=== PATIENT | female | born 2000 | race Caucasian/White ===

== ENCOUNTER 2020-01-11 18:29 | Outpatient (CLI) | payer BC, SELFPAY ==
[2020-01-11 18:54] LABS: Hemoglobin A1C 5.1 % (<5.7)
== END 2020-01-11 18:30 | disposition home or self-care (01) ==
PROVIDERS: PCP Internal Medicine; Visit Provider Obstetrics & Gynecology
DX: B37.3 Candidiasis of vulva and vagina (principal)
CPT/HCPCS: 36415; 83036

== ENCOUNTER 2020-02-14 11:23 | Outpatient (CLI) | payer BC, SELFPAY ==
[2020-02-15 19:47] LABS: SARS-CoV-2 RNA PCR Negative
== END 2020-02-14 11:24 | disposition home or self-care (01) ==
LOC: CHSLAB 11:25
PROVIDERS: PCP Internal Medicine; Visit Provider Internal Medicine
DX: Z20.828 Contact with and (suspected) exposure to other viral communicable diseases (principal)
CPT/HCPCS: 87635; C9803; U0003

== ENCOUNTER 2020-07-18 11:12 | Outpatient (CLI) | payer BC, SELFPAY ==
[2020-07-18 12:27] LABS: SARS-CoV-2 RNA PCR Negative (Negative)
== END 2020-07-18 11:13 | disposition home or self-care (01) ==
LOC: CHSLAB 11:20
PROVIDERS: PCP Internal Medicine; Visit Provider Internal Medicine
DX: J02.9 Acute pharyngitis, unspecified (principal); R05 Cough; R50.9 Fever, unspecified; Z20.822 Contact with and (suspected) exposure to COVID-19
CPT/HCPCS: C9803; U0003; U0005

== ENCOUNTER 2021-08-01 13:26 | Outpatient (CLI) | payer BC, SELFPAY ==
[2021-08-01 14:33] LABS: Influenza A QL RT-PCR Negative (Negative); Influenza B QL RT-PCR Negative (Negative); SARS-CoV-2 RNA PCR Negative (Negative)
== END 2021-08-01 13:27 | disposition home or self-care (01) ==
LOC: CHSLAB 13:31
PROVIDERS: PCP Internal Medicine; Visit Provider Internal Medicine
DX: J06.9 Acute upper respiratory infection, unspecified (principal); Z20.822 Contact with and (suspected) exposure to COVID-19
CPT/HCPCS: 87081; 87502; 87880; C9803; U0003; U0005

== ENCOUNTER 2021-10-04 08:54 | Emergency (ER) | payer BC, SELFPAY ==
--- NOTE | ~2021-10-04 | CT_ITS ---
EXAMINATION: CT abdomen pelvis w con INDICATION: Abdominal pain TECHNIQUE: Computed tomographic images of the abdomen and pelvis were obtained after the administrati on of 100 cc of Omnipaque 350 intravenous contrast. The dose-length product (DLP) was 1141.55 mGy-cm. Automated exposure control and iterative reconstruction technique were employed. COMPARISON: None available FINDINGS: The lung bases are clear. The heart size is normal. The liver, spleen, pancreas, and adrena l glands are normal. There is a polyp or stone of the gallbladder fundus. The kidneys are unremarkabl e. There is mild right inguinal lymphadenopathy. There are prominent, but not pathologically enlarged , retroperitoneal and left obturator lymph nodes. There is no free intraperitoneal gas or evidence of bowel obstruction. An IUD is noted. IMPRESSION: 1. No CT correlate for the patient's symptoms. 2. Mild right inguinal lymphadenopathy and prominent retroperitoneal and left obturator lymph nodes. Findings could be reactive however clinical follow-up is recommended. Reviewed, dictated and finalized at location B. IMPRESSION: 1. No CT correlate for the patient's symptoms. 2. Mild right inguinal lymphadenopathy and prominent retroperitoneal and left o bturator lymph nodes. Findings could be reactive however clinical follow-up is recommended.
[2021-10-04 09:04] VITALS: BP 118/79; PULSE 84; RESP 18; TEMP 36.6; O2SAT 98
[2021-10-04 09:47] LABS: Basophils Absolute Auto 0.08 K/mm3 (0.00-0.10); Basophils Percent Auto 0.8 % (0.0-1.0); Eosinophils Absolute Auto 0.25 K/mm3 (0.02-0.50); Eosinophils Percent Auto 2.5 % (1.0-6.0); Hematocrit 43.2 % (35.0-49.0); Hemoglobin 14.3 g/dL (12.0-15.0); Immature Granulocyte Absolute 0.03 K/mm3 (0.00-0.00); Immature Granulocyte Percent A 0.3 % (0.0-0.0); Lymphocytes Absolute Auto 2.32 K/mm3 (1.10-4.50); Lymphocytes Percent Auto 23.6 % (18.0-42.0); Mean Corpuscular HGB Conc 33.1 g/dL (32.0-36.0); Mean Corpuscular Hemoglobin 29.9 pg (27.0-31.0); Mean Corpuscular Volume 90.4 fL (78.0-102.0); Mean Platelet Volume 11.1 fl (9.2-11.8); Monocytes Absolute Auto 0.53 K/mm3 (0.10-0.90); Monocytes Percent Auto 5.4 % (2.0-11.0); Neutrophils Absolute Auto 6.6 K/mm3 (1.7-7.2); Neutrophils Percent Auto 67.4 % (50.0-70.0); Platelet Count Result 252 K/mm3 (150-420); Red Blood Count 4.78 M/mm3 (4.20-5.40); Red Cell Distribution Width 13.5 % (11.6-14.4); White Blood Count 9.8 K/mm3 (4.8-10.8)
[2021-10-04] MEDS: SODIUM CHLORIDE 0.9% IV 1,000 ML 999 ML IV CONT (09:52)
[2021-10-04 09:56] LABS: Add Urine Microscopic? YES; Appearance Urine Clear (Clear); Bilirubin Urine Negative (Negative); Blood Urine Negative (Negative); Color Urine Light Yellow (Yellow); Glucose Urine UA Negative (Negative); Ketones Urine Negative (Negative); Leukocyte Esterase Ur 1+ (Negative); Nitrate Urine Negative (Negative); Protein Urine Negative (Negative); Urobilinogen Urine 0.2 mg/dL (0.2-1.0)
[2021-10-04 09:58] LABS: Pregnancy On Board Control Positive; Urine Pregnancy Test Negative
[2021-10-04 10:02] LABS: Bacteria Urine 2+ /hpf; RBC Urine None seen /hpf (0-2); Squamous Epithelial Cell Urine Few /hpf (Few)
[2021-10-04 10:02] LABS: Alanine Aminotransferase 17 U/L (14-59); Albumin Level 3.5 g/dL (3.4-5.0); Alkaline Phosphatase 86 U/L (46-116); Anion Gap 6 mmol/L (8-16); Aspartate Amino Transferase 12 U/L (15-37); Bilirubin,Total 0.5 mg/dL (0.00-1.00); Blood Urea Nitrogen 12 mg/dL (7-18); Calcium 8.7 mg/dL (8.5-10.1); Carbon Dioxide 27 mmol/L (21-32); Chloride 106 mmol/L (98-108); Creatine Kinase 85 U/L (26-192); Estimated CRCL calculation 92 ml/min; Estimated Glomerular Filt Rate > 60; Glucose 90 mg/dL (70-99); Osmolality Calculated 287 mOsm/kg (285-295); Potassium 4.1 mmol/L (3.5-5.1); Sodium 139 mmol/L (136-145); Total Protein 6.9 g/dL (6.4-8.2)
--- NOTE | 2021-10-04 10:13 | PC.NURSE ---
Pt off floor to CT scan
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
[2021-10-04 11:06] VITALS: BP 108/63; PULSE 65; RESP 18; TEMP 36.2; O2SAT 98
== END 2021-10-04 11:06 | disposition home or self-care (01) ==
PROVIDERS: Emergency Provider Emergency Medicine; PCP Internal Medicine
DX: R10.9 Unspecified abdominal pain (principal); V89.2XXA Person injured in unspecified motor-vehicle accident, traffic, initial encounter
CPT/HCPCS: 36415; 74177; 80053; 81001; 81025; 82550; 85025; 96360; 99284; J7030; Q9967

== ENCOUNTER 2022-02-15 07:19 | Outpatient (CLI) | payer BC, SELFPAY ==
--- NOTE | ~2022-02-15 | CT_ITS ---
EXAMINATION: CT chest abdomen pelvis w con DATE: 02/15/2022 07:53 INDICATION: Lymphadenopathy TECHNIQUE: Transaxial computed tomographic images of the chest, abdomen, and pelvis were obtained aft er the administration of 100 cc of Omnipaque 350 intravenous contrast. The dose-length product (DLP) was 1307.02 mGy-cm. Automated exposure control and iterative reconstruction technique were employed. COMPARISON: 10/04/2021 FINDINGS: CHEST CT: The lungs are free of acute opacities. No pleural effusion or pneumothorax. No pathologically enlarge d thoracic lymph nodes are identified. The heart size is normal. The visualized osseous structures ar e unremarkable. Triangular soft tissue density in the anterior mediastinum is consistent with residua l thymus. ABDOMEN/PELVIS CT: The liver, spleen, pancreas, gallbladder, and adrenal glands are normal. The kidneys are unremarkable . No pathologically enlarged abdominal or pelvic lymph nodes are identified. No persistent lymphadeno chelsie is identified. There is no free intraperitoneal gas or evidence of bowel obstruction. The appen crystal is normal. An IUD is noted in expected position. There is an enhancing corpus luteum of the right ovary. IMPRESSION: 1. Resolved lymphadenopathy, likely reactive. Reviewed, dictated and finalized at location F. ER
== END 2022-02-15 07:20 | disposition home or self-care (01) ==
LOC: CHSIMG 07:20
PROVIDERS: PCP Internal Medicine; Visit Provider Internal Medicine
DX: R59.1 Generalized enlarged lymph nodes (principal)
CPT/HCPCS: 71260; 74177; Q9967

== ENCOUNTER 2023-01-01 15:00 | Outpatient (RCR) | payer BC, SELFPAY ==
--- NOTE | 2022-12-12 15:24 | OPREHPOC ---
Outpatient Therapy Plan of Care This is a Multidisciplinary Plan of Care that may contain components documented by all disciplines (PT, OT, and ST.) PT Problem 1 PT Problem #1 Knowledge Deficit PT Goal 1 Goal 1. Patient will perform independent HEP Target Visit 5 PT Problem 2 PT Problem #2 Impaired Strength PT Goal 1 Goal 1. Improve pelvic floor strength to 5/5 to decrease incontinence Target Visit 5 PT Problem 3 PT Problem #3 Impaired Functional ADLs PT Goal 1 Goal 1. Patient will report no more than 3 instances of incontinence per week 2. Patient will be able to work a full week without needing to change clothes due to incontinence Target Visit 5
--- NOTE | 2022-12-12 15:25 | PTOPEVAL1 ---
Assessment and note entered by Marva Carrington DPDeysi Evaluation Information Assessment Status Evaluation Subjective Information Pt reports urinary incontinence, had it from a young age with movement but now has worsened and seems to be all day long. Unable to give a number of times per day, just small amounts very often. Voids 4 times a day and usually none at night. Denies pain with urination. Can hold urge to void up to 15 minutes. BM usually 1 time a day, without pain. Denies history of pelvic pain. Pt has never been . Has been diagnosed with PCOS and takes metformin. No b/b issues. Pt reports embarrassment and anxiety due to incontinence and makes time to go home after work to change clothes before going anywhere else. Tries to avoid wearing pads due to frequent yeast infections. Patient goal: not have to be worried about smelling like urine, not have to change clothes Reported Pain Level Pain Score 0: Self Report Assessment PT Clinical Summary The patient is presenting to skilled therapy with a progressing history of urinary incontinence and reports a frequency of multiple times a day. She presents with decreased core and pelvic floor strength which are contributing to her incontinence. She will highly benefit from therapy to address these impairments in order to safely reduce incontinence and improve function . Plan of Care Interventions Manual Therapy,Neuro Re-education,Patient/ Caregiver Education,Therapeutic Activities, Therapeutic Exercise PT Services Indicated Yes Treatment Frequency and 1 time a week for 4 visits Duration These treatments will address the objective and functional deficits as defined above. The patient will be advanced safely and appropriately in order for the patient to progress towards his/her prior level of function. Additional exercises will be introduced and as well as a comprehensive home exercise program upon discharge, if needed, ?to ensure carryover of functional gains achieved in the clinic. This treatment plan has been reviewed and agreement upon by the patient.
--- NOTE | 2022-12-25 12:31 | PCPTNOTE ---
Patient called to cancel appointment for 12/25/22.
--- NOTE | 2023-01-09 10:54 | PCPTNOTE ---
Patient called to reschedule appointment to next week due to shingles.
--- NOTE | 2023-01-15 15:49 | PCPTNOTE ---
Patient did not show up for appointment on 01/15/23. Left voicemail for patient to call back and reschedule.
--- NOTE | 2023-02-25 08:55 | PTOPDC ---
Assessment and note entered by Marva Carrington DPT Evaluation Information Assessment Status Discharge - Pt Not Present Subjective Information - Assessment PT Clinical Summary Pt has not attended therapy since 01/01/23. She will be discharged this date. Plan of Care PT Services Indicated No
== END 2023-02-25 09:02 | disposition home or self-care (01) ==
LOC: ANHPT 15:00
PROVIDERS: PCP Internal Medicine; Visit Provider Nurse Practitioner Obstetrics & Gynecology
DX: N39.3 Stress incontinence (female) (male) (principal)
CPT/HCPCS: 97112; 97161; 97530; 99199

== ENCOUNTER 2024-12-22 14:33 | Outpatient (CLI) | payer BC, SELFPAY ==
--- NOTE | ~2024-12-22 | US_ITS ---
EXAMINATION: US OB <= 14 weeks fetus DATE: 12/22/2024 15:52 INDICATION: Threatened TECHNIQUE: Real-time transabdominal and transvaginal obstetric ultrasound. FINDINGS: No prior studies for comparison. The uterus measures 7.3 x 3.1 x 4.3 cm. There is an intrauterine gestational sac, with pole identified. Small subchorionic hemorrhage. The crown rump length measures 0.73 cm, which correlates with a estimated gestational age of 6 weeks 4 days. heart tones are identified measuring 112 BPM. The ovaries within normal limits without significant solid or cystic mass. IMPRESSION: 1. SL IUP with an EGA of 6 weeks 4 days. 2: Small subchorionic hemorrhage. Reviewed, dictated and finalized at location O.
--- OUTSIDE RECORDS SUMMARY | 2024-12-22 14:57 | XMS_ITS | Patient Health Record ---
Author Organization [facility] Address [address] [place] [address] Care Team Providers Care Investigations Manager Name Role Phone Arcelia Tyler Primary Care Provider [phone] Allergies Allergen (clinical drug ingredient) Drug/Non Drug Allergy documented on EMR Reaction Allergy Type Onset Date Status amoxicillin Amoxicillin Unknown Drug Allergy Act netta Reason For Referral No Information Medications Medication SIG (Take, Route, Frequency, Duration) Notes Start Date End Date Status Zoloft 100 MG two tablets Orally T amparo once a day at bedtime; Duration: 30 days Active traZODone HCl 100 MG 1 tablet at bedtime Orally Once a day Active LaMICtal 100 MG 1 tablet Orally once daily; Duration: 30 days Active Ativan 0.5 MG 1 tablet as needed O rally Once a day as needed for anxiety; Duration: 30 days Activ e CECY 3-0.02 MG 1 tablet Orally Once a day Active Wellbutrin XL 150 MG 1 tablet in the mor melissa Orally Once a day; Duration: 30 day(s) 05/30/2016 Not-Taking Vistaril 25 MG 1 capsule as needed Orally twice a day Not-Taking Zoloft 50 MG 1 tablet Orally Once a day; Duration: 30 day(s) 10/18/2015 Not-Taking Problems Problem Type SNOMED Code ICD Code Onset Dates Problem Status W/U Status Risk Notes Problem Generalized anxiety disorder (04218185) GOMEZ (generalized anxiety disorder) (F41.1) Active confirmed Problem Major depressive disorder (732732193) MDD (major depressive disorder) (F32.9) Active confirmed Plan Of Treatment No Information Insurance Providers Payer Name Payer Address Payer Phone Subscriber Number Group Number Insured Name Patient Relationship to Insured Coverage Start Date Coverage End Date MEDICAID [address] [place] [phone] [id number] Trina Buenrostro Self - patient is the insured 5
--- OUTSIDE RECORDS SUMMARY | 2024-12-22 14:57 | XMS_ITS | Clinical Summary ---
Author Organization [facility] Address [address] [place] [address] Care Team Providers Care Security Representative Name Role Phone Tiffanie Fontaine MD Primary Care Provider Unavailab le Source Comments [facility],non-owned Affiliates and Associated Physician Practices is amultiple site organization consisting of ambulatory clinics and hospital sitesin [place], [place], [place] and [place]. This disclosure is being madepursuant to the Care Everywhere program and may not contain all information available regarding this patient. Last updated 17.[facility] Allergies Active Allergy Reactions Criticality Noted Date Comments Amoxicillin 12/05/2011 Medications * Be aware that medications may not be up to date on this document. Alwaysverify current medications with the patient. lumateperone (Caplyta) 42 MG capsule Take 1 (one) capsule by mouth daily with food Active divalproex ER 24hr (Depakote ER) 500 MG tablet Take 1 (one) tablet by mouth once daily Active lurasidone (Latuda) 80 MG tablet Take 1 (one) tablet by mouth daily with food Active hydrOXYzine HCl (Atarax) 25 MG tablet Take 1 (one) tablet by mouth 4 times daily as needed for Itching Active LORazepam (Ativan) 0.5 MG tablet Take 1 (one) tablet by mouth every 8 hours as needed for Anxiety Active traZODone (Desyrel) 50 MG tablet Take 1 (one) tablet by mouth at bedtime Active valACYclovir (Valtrex) 500 MG tablet Take 1 (one) tablet by mouth 2 times daily Active Social History Tobacco Use Types Packs/Day Years Used Date Smoking Tobacco: Never Assessed Comments Unknown Sex and Gender Information Value Date Recorded Sex Assigned at Not on file Legal Sex Female 5:32 AM FIRST SAMPLER Gender Identity Not on file Sexual Orientation Not on file Plan of Treatment Health Maintenance Due Date Last Done Comments HIV SCREENING 2013 HPV VACCINE (1 - 3-dose series) 2013 CHLAMYDIA/GONORRHEA SCREENING 2014 HEPATITIS C SCREENING 12/12/2016 DTAP/TDAP/TD VACCINES (1 - Tdap) 2017 HEPATITIS B VACCINE (1 of 3 - 19+ 3-dose series) 2017 PAP SMEAR 12/18/2019 DEPRESSION SCREENING 03/31/2024 COVID-19 VACCINE (1 - 2023-2 5 season) 2024 INFLUENZA VACCINE (#1) 2024 ZOSTER VACCINE (1 of 2) 2048 HIB VACCINE Aged Out No longer eligi ble based on patient's age to complete this topic MENINGOCOCCAL (Group B) VACC INE SHARED DECISION-MAKING Aged Out No longer eligibl e based on patient's age to complete this topic MENINGOCOCCAL GROUPS A/C/Y/W VACCINE Aged Out No longer eligible b ased on patient's age to complete this topic PNEUMOCOCCAL VACCINE Aged Out No long er eligible based on patient's age to complete this topic Insurance ANTHEM ANTHEM Care Teams Security Representative Relationship Specialty Start Date End Date Tiffanie Fontaine MD PCP - General Pediatrics 11/29/11
--- OUTSIDE RECORDS SUMMARY | 2024-12-22 14:57 | XMS_ITS | Clinical Summary ---
Author Organization [facility] Address [address] [place] [address] Care Team Providers Care Supervisor Inspecting Name Role Phone Jorje Purdy MD Primary Care Provider + Allergies Active Allergy Reactions Criticality Noted Date Comments Amoxicillin Rash Medium 01/14/2018 Hot flashes Bupropion Hcl Rash Medium 01/14/2018 Medications levonorgestrel (MIRENA) 20 mcg/24 hr (5 years) IUD 1 Device by Intrauterine route one time only. Active melatonin 5 mg Tablet Take 5 mg by mouth daily at bedtime. Active metFORMIN (GLUCOPHAGE) 1,000 mg tablet Take 1,000 mg by mouth daily with breakfast. Active traZODone (DESYREL) 50 mg tablet Take 1 Tablet (50 mg) by mouth daily at bedtime. 90 Tablet 1 9 Active lamoTRIgine (LaMICtal) 100 mg tablet Take 2 Tablets (200 mg) by mouth daily. 180 Tablet 1 9 Active Active Problems Problem Noted Date Diagnosed Date Moderate episode of recurrent major depressive d isorder Family History Medical History Relation Name Comments Anxiety Father Depression Father Anxiety Maternal Grandfather Anxiety Mother Depression Paternal Grandfather Diabetes Paternal Grandfather Anxiety Paternal Grandmother Anxiety Sister 1 Healthy Sister 1 Other Sister 1 Hoshimoto's Thyroid Disease Sister 1 Anxiety Sister 2 Healthy Sister 2 Relation Name Status Comments Father Alive Maternal Grandfather Alive Maternal Grandmother Alive Mother Alive Paternal Grandfather Alive Paternal Grandmother Alive Sister 1 Alive Sister 2 Alive Social History Tobacco Use Types Packs/Day Years Used Date Smoking Tobacco: Never Smokeless Tobacco: Never Tobacco Cessation:Counseling Given: No Alcohol Use Standard Drinks/Week Comments No 0 (1 standard drink = 0.6 oz pur e alcohol) Comments No Sex and Gender Information Value Date Recorded Sex Assigned at Not on file Legal Sex Female 10:20 PM CDT Gender Identity Not on file Sexual Orientation Not on file Last Filed Vital Signs Vital Sign Reading Time Taken Comments Blood Pressure 120/78 11/10/2018 11:22 AM CDT Pulse 98 11/10/2018 11:22 AM CDT Temperature 36.8 C (98.2 F) 01/27/2018 10:32 AM CDT Respiratory Rate 16 01/27/2018 10:32 AM CDT Oxygen Saturation - - Inhaled Oxygen Concentration - - Weight 98.2 kg (216 lb 6.4 oz) 11/10/2018 11:22 AM CDT Height 160 cm (5' 3) 11/10/2018 11:22 AM CDT Body Mass Index 38.33 11/10/2018 11:22 AM CDT Plan of Treatment Health Maintenance Due Date Last Done Comments HPV VACCINES (1 - 3-dose series) 2013 DTAP/TDAP/TD VACCINES (1 - Tdap) 2017 HEPATITIS B VACCINES (1 of 3 - 19+ 3-dose series) 11/29 CERVICAL CANCER SCREENING 12/18/2019 HPV/Cotest (21-29) 12/18/2019 PAP SMEAR 12/18/2019 INFLUENZA VACCINE (#1) 2024 Insurance [facility] [employer] Care Teams Supervisor Inspecting Relationship Specialty Start Date End Date Jorje Purdy MD [address] [place] [id number] PCP - General Internal Medicine 01/14/18
--- OUTSIDE RECORDS SUMMARY | 2024-12-22 14:57 | XMS_ITS | Patient Health Record ---
Author Organization [facility] [employer] Address [address] [facility] [address] [place] [address] Care Team Providers Care Virginia Line Attendant Name Role Phone Bree Munson Unavailable [phone] Allergies Allergen (clinical drug ingredient) Drug/Non Drug Allergy documented on EMR Reaction Allergy Type Onset Date Status amoxicillin Amoxicillin Unknown Drug Allergy 08/12/2023 Ac tive bupropion Bupropion Unknown Drug Allergy 08/12/2023 Active Reason For Referral No Information Medications Medication SIG (Take, Route, Frequency, Duration) Notes Start Date End Date Status Lurasidone HCl 40 MG Tablet 1 tablet in the evening with food Orally Once a day; Duration: 30 days Active Caplyta 42 MG Capsule 1 capsule Oral Once a day; Duration: 30 days *Reorder from [employer]olo[employer] Properties for eRx and Interaction Alerts* Active Depakote ER 500 MG Tablet Extended Release 24 Hour 1 tablet Orally three times a day; Duration: 90 days Active LORazepam 0.5 MG Tablet 1 tablet Oral three times a day; Duration: 10 days As needed d/c bid dose Active Divalproex Sodium 500 MG Tablet Delayed Release 1 tablet Oral three times a day; Duration: 90 days d/c ER script Active MIRENA 21 MCG/24 HR (UP TO 8 YEARS) 52 MG INTRAUTERINE DEVICE *Reorder from IntoloopMCTX Properties for eRx and Interaction Alerts* 08/12/2023 Active ProAir HFA 108 (90 Base) MCG/ACT Aerosol Solution Inhalation 08/12/2023 Active ZyrTEC Allergy 10 MG Capsule Oral 08/12/2023 Active traZODone HCl 50 MG Tablet TAKE 1 TABLET BY MOUTH EVERYDAY AT BEDTIME; Duration: 90 Active hydrOXYzine HCl 25 MG Tablet 1 tablet Oral Once a day; Duration: 30 days As needed Active Immunizations Vaccine Route Administration Date Status Comme nts DTaP Unknown 02/16/1999 Administered DTaP Unknown 04/19/1999 Administered DTaP Unknown 06/18/1999 Administered DTaP Unknown 03/19/2000 Administered DTaP Unknown 12/20/2003 Administered Hep A, ped/adol, 2 dose Unknown 12/23/2007 Administered Hep A, ped/adol, 2 dose Unknown 05/22/2009 Administered Hep B, adolescent or pediatr ic (11-19), 3 dose schedule Unknown 02/16/1999 Administered Hep B, adolescent or pediatr ic (11-19), 3 dose schedule Unknown 06/18/1999 Administered Hep B, adolescent or pediatr ic (11-19), 3 dose schedule Unknown 09/19/1999 Administered Hib, unspecified formulation Unknown 02/16/1999 Adminis tered Hib, unspecified formulation Unknown 04/19/1999 Adminis tered Hib, unspecified formulation Unknown 06/18/1999 Adminis tered Hib, unspecified formulation Unknown 03/19/2000 Adminis tered HPV (human papillomavirus), bivalent, 3 dose schedule Unknown 02/05/2013 Administered HPV (human papillomavirus), bivalent, 3 dose schedule Unknown 04/08/2013 Administered HPV (human papillomavirus), bivalent, 3 dose schedule Unknown 09/23/2013 Administered Influenza virus vaccine, quadrivalent (IIV4), split virus, 0.25 mL dosage Unknown 01/11/2015 Administered Influenza, unspecified formulation Unknown 12/23/2007 A dministered Influenza, unspecified formulation Unknown 01/25/2009 A dministered Influenza, unspecified formulation Unknown 01/16/2011 A dministered Influenza, unspecified formulation Unknown 01/16/2012 A dministered Influenza, unspecified formulation Unknown 02/05/2013 A dministered IPV Unknown 02/16/1999 Administered IPV Unknown 04/19/1999 Administered IPV Unknown 06/18/1999 Administered IPV Unknown 03/19/2000 Administered Meningococcal MCV4P Unknown 10/08/2010 Administered Meningococcal MCV4P Unknown 11/05/2016 Administered Meningococcal Quadrivalent Unknown 10/18/2010 Administe red MMR Unknown 12/19/1999 Administered MMR Unknown 12/20/2003 Administered Pneumococcal conjugate PCV 7 Unknown 12/19/1999 Adminis tered Pneumococcal conjugate PCV 7 Unknown 02/17/2000 Adminis tered Td (adult), adsorbed Unknown 10/18/2010 Administered Tdap Unknown 10/18/2010 Administered Varicella Unknown 12/19/1999 Administered Varicella Unknown 12/23/2007 Administered Social History Tobacco Use: Social History Observation Description Date Details (start date - stop date) Never Smoker NA - NA Sex Assigned At : Social History Observation Description Sex Assigned At Female Social History Tobacco Use: Social Info Question Answer Notes Tobacco Control (Standard) Tobacco use: Nonsmoker Additional Details Category Social Info Options Details Migrated Social History Migrated Social History Alcohol Intake: Occasional 06/10/2020,Tobacco Years: Never smoker 02/01/2020 Problems Problem Type SNOMED Code ICD Code Onset Dates Problem Status W/U Status Risk Notes Problem Bipolar affective disorder, currently depressed, mild (808661921) Bipolar disorder, current episode depressed, mild (F31.31) 08/12/19 Active confirmed Problem Generalized anxiety disorder (99795176) Generalized anxiety disorder (F41.1) 08/12/19 Active confirmed Problem Primary insomnia (6562912) Primary insomnia (F51.01) 08/12/19 Active confirmed Problem Bipolar 1 disorder (245550571) Bipolar 1 disorder (F31.9) Active confirmed Problem Long-term current use of drug therapy (107165196) On intermediate drug therapy (Z79.899) Active confirmed Problem Bipolar affective disorder, currently manic, moderate (075385390) Bipolar disorder, manic, moderate (F31.12) Active confirmed Problem Hypnagogic hallucinations (98832914) Hypnagogic hallucinations (R44.2) Active confirmed Vital Signs Heart Rate 52 /min 12/26/2023 Height-cm 160.02 cm 12/26/2023 Blood pressure diastolic 69 mm Hg 12/26/2023 Weight-kg 111.86 kg 12/26/2023 Height 63.00 in 12/26/2023 Blood pressure systolic 103 mm Hg 12/26/2023 Weight 246.6 lbs 12/26/2023 BMI 43.68 kg/m2 12/26/2023 Encounters Encounter Location Date Provider Diagnosis [facility] [employer] [facility] [address] [address] 12/26/2023 Bree Munson Bipolar 1 disorder F31.9 ; Generalized anxiety disorder F41.1 ; Hypnagogic hallucinations R44.2 and Primary insomnia F51.01 [employer] [address] [facility] [address] [place] [address] 04/08/2024 Bree Munson Bipolar 1 disorder F31.9 Assessments Encounter Date Diagnosis (ICD Code) Assessment Notes Treatment Notes Treatment Clinical Notes Section Notes 04/08/2024 Bipolar 1 disorder (ICD-10 - F31.9) 12/26/2023 Bipolar 1 disorder (ICD-10 - F31.9) NO REFILLS NEEDED TODAY 12/03/23 increase -Depakote 500 mg to Three times a day- no refill needed 12/03/23 increase - Lorazepam 0.5 mg three times a day- no reill needed go to ER if needed. 1. Bipolar I Disorder - She reports last 6 weeks had manic/mix episodes and a swing into depression over last few weeks and currently in depression state- improving with Latuda last 3 weeks- will monitor discuss and educated on Latuda 40 mg with evening meal and eat 350 calories with rx - Continue current medications: Caplyta 42 mg daily and Depakote 500 mg three times a day. - Monitor mood and symptoms closely. Continue therapy seen 2x week and work on coping skills and stress, working 2 jobs, school and schedule therapy more often need 2 anti-psychotics at this time for symptom control dameon/mix/depres liban 2. Hypnagogic Hallucinations - She reports experiencing hallucinations before sleep .- improved with sleep improved - Reassurance provided that these hallucinations are not necessarily related to medications or mental illness. - antipsychotic medication prescribed at this time.- Caplyta 42 mg daily PCP scheduled to have labs and will bring to [facility] 12/18/23 3. Insomnia and Sleep Disturbances - She reports improved sleeping and staying asleep. educated to take trazodone dosage to 100 mg at bedtime for sleep.- - Encourage the use of melatonin as an additional sleep aid.- reported not taking - Emphasize the importance of sleep hygiene and maintaining a consistent sleep schedule to prevent exacerbation of manic symptoms. 4. Impulse Control Issues- improved - She reports experiencing no lack of impulse control, and no manic episodes. - Continue monitoring symptoms and consider adjustments to the treatment plan if necessary. 5. ANXIETY- [facility] Follow-up: - Encourage the patient to maintain regular communication with her primary mental health provider, - Schedule a follow-up appointment to assess the effectiveness of the current treatment plan and make any necessary adjustments. 12/26/2023 Generalized anxiety disorder (ICD-10 - F41.1) Learning About Generalized Anxiety Disorder material was published, Generalized Anxiety Disorder: Care Instructions material was published, Learning About Anxiety Disorders material was published NO REFILLS NEEDED TODAY 12/03/23 increase -Depakote 500 mg to Three times a day- no refill needed 12/03/23 increase - Lorazepam 0.5 mg three times a day- no reill needed go to ER if needed. 1. Bipolar I Disorder - She reports last 6 weeks had manic/mix episodes and a swing into depression over last few weeks and currently in depression state- improving with Latuda last 3 weeks- will monitor discuss and educated on Latuda 40 mg with evening meal and eat 350 calories with rx - Continue current medications: Caplyta 42 mg daily and Depakote 500 mg three times a day. - Monitor mood and symptoms closely. Continue therapy seen 2x week and work on coping skills and stress, working 2 jobs, school and schedule therapy more often need 2 anti-psychotics at this time for symptom control dameon/mix/depres liban 2. Hypnagogic Hallucinations - She reports experiencing hallucinations before sleep .- improved with sleep improved - Reassurance provided that these hallucinations are not necessarily related to medications or mental illness. - antipsychotic medication prescribed at this time.- Caplyta 42 mg daily PCP scheduled to have labs and will bring to [facility] 12/18/23 3. Insomnia and Sleep Disturbances - She reports improved sleeping and staying asleep. educated to take trazodone dosage to 100 mg at bedtime for sleep.- - Encourage the use of melatonin as an additional sleep aid.- reported not taking - Emphasize the importance of sleep hygiene and maintaining a consistent sleep schedule to prevent exacerbation of manic symptoms. 4. Impulse Control Issues- improved - She reports experiencing no lack of impulse control, and no manic episodes. - Continue monitoring symptoms and consider adjustments to the treatment plan if necessary. 5. ANXIETY- VISTARIL Follow-up: - Encourage the patient to maintain regular communication with her primary mental health provider, - Schedule a follow-up appointment to assess the effectiveness of the current treatment plan and make any necessary adjustments. 12/26/2023 Hypnagogic hallucinations (ICD-10 - R44.2) NO REFILLS NEEDED TODAY 12/03/23 increase -Depakote 500 mg to Three times a day- no refill needed 12/03/23 increase - Lorazepam 0.5 mg three times a day- no reill needed go to ER if needed. 1. Bipolar I Disorder - She reports last 6 weeks had manic/mix episodes and a swing into depression over last few weeks and currently in depression state- improving with Latuda last 3 weeks- will monitor discuss and educated on Latuda 40 mg with evening meal and eat 350 calories with rx - Continue current medications: Caplyta 42 mg daily and Depakote 500 mg three times a day. - Monitor mood and symptoms closely. Continue therapy seen 2x week and work on coping skills and stress, working 2 jobs, school and schedule therapy more often need 2 anti-psychotics at this time for symptom control dameon/mix/depres liban 2. Hypnagogic Hallucinations - She reports experiencing hallucinations before sleep .- improved with sleep improved - Reassurance provided that these hallucinations are not necessarily related to medications or mental illness. - antipsychotic medication prescribed at this time.- Caplyta 42 mg daily PCP scheduled to have labs and will bring to [facility] 12/18/23 3. Insomnia and Sleep Disturbances - She reports improved sleeping and staying asleep. educated to take trazodone dosage to 100 mg at bedtime for sleep.- - Encourage the use of melatonin as an additional sleep aid.- reported not taking - Emphasize the importance of sleep hygiene and maintaining a consistent sleep schedule to prevent exacerbation of manic symptoms. 4. Impulse Control Issues- improved - She reports experiencing no lack of impulse control, and no manic episodes. - Continue monitoring symptoms and consider adjustments to the treatment plan if necessary. 5. ANXIETY- VISTARIL Follow-up: - Encourage the patient to maintain regular communication with her primary mental health provider, - Schedule a follow-up appointment to assess the effectiveness of the current treatment plan and make any necessary adjustments. 12/26/2023 Primary insomnia (ICD-10 - F51.01) Insomnia: Care Instructions material was published, Learning About Sleeping Well material was published NO REFILLS NEEDED TODAY 12/03/23 increase -Depakote 500 mg to Three times a day- no refill needed 12/03/23 increase - Lorazepam 0.5 mg three times a day- no reill needed go to ER if needed. 1. Bipolar I Disorder - She reports last 6 weeks had manic/mix episodes and a swing into depression over last few weeks and currently in depression state- improving with Latuda last 3 weeks- will monitor discuss and educated on Latuda 40 mg with evening meal and eat 350 calories with rx - Continue current medications: Caplyta 42 mg daily and Depakote 500 mg three times a day. - Monitor mood and symptoms closely. Continue therapy seen 2x week and work on coping skills and stress, working 2 jobs, school and schedule therapy more often need 2 anti-psychotics at this time for symptom control dameon/mix/depres liban 2. Hypnagogic Hallucinations - She reports experiencing hallucinations before sleep .- improved with sleep improved - Reassurance provided that these hallucinations are not necessarily related to medications or mental illness. - antipsychotic medication prescribed at this time.- Caplyta 42 mg daily PCP scheduled to have labs and will bring to [facility] 12/18/23 3. Insomnia and Sleep Disturbances - She reports improved sleeping and staying asleep. educated to take trazodone dosage to 100 mg at bedtime for sleep.- - Encourage the use of melatonin as an additional sleep aid.- reported not taking - Emphasize the importance of sleep hygiene and maintaining a consistent sleep schedule to prevent exacerbation of manic symptoms. 4. Impulse Control Issues- improved - She reports experiencing no lack of impulse control, and no manic episodes. - Continue monitoring symptoms and consider adjustments to the treatment plan if necessary. 5. ANXIETY- VISTARIL Follow-up: - Encourage the patient to maintain regular communication with her primary mental health provider, - Schedule a follow-up appointment to assess the effectiveness of the current treatment plan and make any necessary adjustments. Plan Of Treatment Pending Test Test Name Order Date UDT 12/04/2023 Insurance Providers Payer Name Payer Address Payer Phone Subscriber Number Group Number Insured Name Patient Relationship to Insured Coverage Start Date Coverage End Date [facility] [address] [place] [address] [id number] MAYURI ESTRADA Self - patient is the insured Medical (General) History Medical History History ICD Code Problems: Bipolar I disorder, most recen t episode depression Generalized anxiety disorder Manic bipolar I disorder Mild recurrent major depression Primary insomnia , Surgical History Surgery Date(Month/Year) Tonsilectomy/adenoids 03/31/2016
--- OUTSIDE RECORDS SUMMARY | 2024-12-22 14:57 | XMS_ITS | Clinical Summary ---
Author Organization [facility] Care Address [address] [place] [address] Phone Care Team Providers Care Manager Technical Services Name Role Phone Jorje Purdy MD Unavailable [phone] Jorje Purdy MD Primary Care Provider [phone] Allergies Active Allergy Reactions Criticality Noted Date Comments Amoxicillin Hives Medium Amoxicillin Urticaria Medium 04/14/2024 Medications LORazepam (ATIVAN) 0.5 mg tablet Active lamoTRIgine (LaMICtal) 100 mg tablet Take 100 mg by mouth daily. Active levonorgestrel (MIRENA) IUD by intrauterine route. Active sertraline (ZOLOFT) 100 mg tablet Take 200 mg by mouth daily. Active traZODone (DESYREL) 50 mg tablet Take 50 mg by mouth nightly. Active metFORMIN (GLUMETZA) 500 mg 24 hr tablet Take 3 tablets (1,500 mg total) by mouth daily. 90 tablet 8 9 Active Active Problems Problem Noted Date Diagnosed Date Abnormal auditory perception, bilateral 08/20/19 24 Menstrual migraine 11/26/2016 Polycystic ovaries 10/09/2016 Irregular menstrual cycle 08/02/2016 Vaginal discharge 07/09/2016 Mass of breast 07/09/2016 Encounter for contraceptive management 7 Menorrhagia 05/29/2016 Breakthrough bleeding 05/29/2016 Abnormal finding on thyroid function test 2016 Abnormal luteninizing hormone level 05/29/2016 Enlarged tonsils 05/29/2015 Disease of tonsils and adenoids 05/29/2015 Sore throat 05/04/2015 Right upper quadrant abdominal pain 01/12/2015 Vasovagal syncope 06/14/2014 Encounters Date Type Department Care Team Description 10/18/[address] [facility] [address] [facility] [address] [place] [id number] Arnaud Navarro MD Exposure to MRSA (Primary Dx) from Last 3 Months Surgical History Surgery Date Site/Laterality Comments [place] TONSILLECTOMY PRIMARY/SEC ONDARY <AGE 10 Tonsillectomy - (Added by TW Conv) Medical History Medical History Date Comments Personal history of other sp ecified conditions History of syncope - (Added by TW Conv) Streptococcal infection Group C streptococcal infection - (Added by TW Conv) Personal history of other me ntal and behavioral disorders History of anxiety - (Added by TW Conv) Personal history of other me ntal and behavioral disorders History of depression - (Add ed by TW Conv) Family History Medical History Relation Name Comments Diabetes type II Maternal Grandfather Fam yaa history of type 2 diabetes mellitus - Relation: Grandfather (Added by TW Conv) Anxiety disorder Mother Anxiety - ( Added by TW Conv) Migraines Mother Family history of migraine headaches - (Added by TW Conv) Anxiety disorder Other Anxiety - ( Added by TW Conv) Diabetes type II Other Family hist ory of type 2 diabetes mellitus - Relation: Grandmother (Added by TW Conv) Relation Name Status Comments Maternal Grandfather Mother Other Social History Tobacco Use Types Packs/Day Years Used Date Smoking Tobacco: Never Smokeless Tobacco: Never Comments Unknown Sex and Gender Information Value Date Recorded Sex Assigned at Not on file Legal Sex Female 10:41 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 Gender Identity Not on file Sexual Orientation Not on file Obstetrics History Last Filed Vital Signs Vital Sign Reading Time Taken Comments Blood Pressure 117/65 10/15/2017 8:23 AM CDT Pulse 60 10/15/2017 8:23 AM CDT Temperature 36.7 C (98.1 F) 10/15/2017 8:23 AM CDT Respiratory Rate 21 10/15/2017 8:23 AM CDT Oxygen Saturation - - Inhaled Oxygen Concentration - - Weight 88.8 kg (195 lb 12.3 oz) 10/15/2017 8:23 AM CDT Height 160.1 cm (5' 3.03) 10/15/2017 8:23 AM CD T Body Mass Index 34.64 10/15/2017 8:23 AM CDT Plan of Treatment Health Maintenance Due Date Last Done Comments Cervical Cancer Screening 1998 Depression Screening 1998 Hepatitis C Screening 1998 DTaP/Tdap/Td Vaccine (1 - Tdap) 2009 Varicella Vaccines (1 of 2 - 13+ 2-dose series) 12/18/2011 HPV Vaccines (1 - 3-dose series) 2013 Hepatitis B Screening 2016 Regular Well Visit/Exam 18-64 2016 Influenza Vaccine (#1) 2024 , 02/17/2023, 02/24/2022, Additional history exists Pneumococcal vaccine <65 Aged Out No longer eligible based on patient's age to complete this topic Insurance [facility] [employer] [facility] [employer] [facility] [employer] Care Teams Manager Technical Services Relationship Specialty Start Date End Date Jorje Purdy MD [address] [place] [address] PCP - General Internal Medicine 05/12/24 Jorje Purdy MD [address] [place] [address] 04/14/24
--- OUTSIDE RECORDS SUMMARY | 2024-12-22 14:57 | XMS_ITS | Clinical Summary ---
Author Organization [facility] Address [facility] [place] [address] Care Team Providers Care Cab Supervisor Name Role Phone Jorje Purdy MD Primary Care Provider [phone] Allergies Active Allergy Reactions Criticality Noted Date Comments Amoxicillin Unknown 07/09/2021 Medications lamoTRIgine 100 MG tablet Take 200 mg by mouth daily. Active levonorgestrel 20 MCG/24HR IUD 1 Device by Intrauterine route. Active metFORMIN 1000 MG tablet Take 1,000 mg by mouth daily with breakfast. Active montelukast 10 MG tablet Take 10 mg by mouth every evening. Active azithromycin (ZITHROMAX Z-ANT) 250 MG tablet Take 2 tabs on Day 1, then 1 tab on days 2-5 6 tablet 2 Active albuterol (2.5 MG/3ML) 0.083% nebulizer solution Take 3 mLs (2.5 mg total) by nebulization every 4 (four) hours as needed for Wheezing. 75 mL 2 Active Social History Tobacco Use Types Packs/Day Years Used Date Smoking Tobacco: Never Smokeless Tobacco: Never Comments Yes Sex and Gender Information Value Date Recorded Sex Assigned at Not on file Legal Sex Female 1:56 PM CDT Gender Identity Not on file Sexual Orientation Not on file Last Filed Vital Signs Vital Sign Reading Time Taken Comments Blood Pressure 131/82 07/09/2021 2:02 PM CDT Pulse 102 07/09/2021 2:02 PM CDT Temperature 38.5 C (101.3 F) 07/09/2021 2:02 PM CDT Respiratory Rate 28 07/09/2021 2:02 PM CDT Oxygen Saturation 96% 07/09/2021 2:02 PM CDT Inhaled Oxygen Concentration - - Weight 99.8 kg (220 lb) 07/09/2021 2:02 PM CDT Height 160 cm (5' 3) 07/09/2021 2:02 PM CDT Body Mass Index 38.97 07/09/2021 2:02 PM CDT Plan of Treatment Health Maintenance Due Date Last Done Comments Cervical Cancer Screening Pa p Smear (Age 21 to 29) Every 3 Years 1998 Cervical Cancer Screening 1998 Annual Physical 2001 HPV Vaccines (1 - 3-dose series) 2013 Hepatitis C 2016 DTaP, Tdap and Td Vaccines ( 1 - Tdap) 2017 Hepatitis B Vaccines (1 of 3 - 19+ 3-dose series) 2017 COVID-19 Vaccine ( - 2023-2 5 season) 2024 RSV Immunization or 60+ Years (1 - 1-dose 75+ series) 2073 Meningococcal B Vaccine Aged Out No l onger eligible based on patient's age to complete this topic Meningococcal Vaccine Aged Out No julieta mateo eligible based on patient's age to complete this topic Pneumococcal Vaccine: Pediat rics (0 to 5 Years) and At-Risk Patients (6 to 49 Years) Aged Out No longer eligible b ased on patient's age to complete this topic RSV Immunizations Under 20 Months Aged Out No longer eligible based on patient's age to complete this topic Insurance Care Teams Cab Supervisor Relationship Specialty Start Date End Date Jorje Purdy MD [address] [place] [address] PCP - General INTERNAL MEDICINE 07/09/21
--- OUTSIDE RECORDS SUMMARY | 2024-12-22 14:57 | XMS_ITS | Clinical Summary ---
Author Organization [facility] Address [address] [place] [address] Phone Care Team Providers Care Electromechanical Equipment Tester Name Role Phone Jorje Purdy MD Primary Care Provider [phone] Terra Alfonso MD Unavailable [phone]- [phone] Allergies Active Allergy Reactions Criticality Noted Date Comments Amoxicillin Hives 06/29/2018 Medications sertraline (ZOLOFT) 100 MG Tablet Take 100 mg by mouth 2 times daily. Active traZODone (DESYREL) 50 MG Tablet Take 50 mg by mouth nightly. Active lamoTRIgine (LAMICTAL) 100 MG Tablet Take 200 mg by mouth daily. Active montelukast (SINGULAIR) 10 MG Tablet Take 10 mg by mouth every evening. Active raNITIdine (ZANTAC) 150 MG Tablet Take 150 mg by mouth 2 times daily. Active metFORMIN (GLUCOPHAGE-XR) 500 MG TABLET SR 24 HR TAKE ONE TABLET BY MOUTH TWICE A DAY 180 Tablet 07/25/2021 Active Active Problems Problem Noted Date Diagnosed Date PCOS (polycystic ovarian syndrome) 12/28/2018 Class 2 severe obesity due t o excess calories with serious comorbidity and body mass index (BMI) of 38.0 to 38.9 in adult 12/28/2018 Family History Medical History Relation Name Comments Anxiety disorder Father High Cholesterol Father Hypertension Father Hypertension Maternal Grandmother Anxiety disorder Mother Diabetes Paternal Grandfather Diabetes Paternal Grandmother Hypothyroidism Sister 1 No Known Problems Sister 2 Relation Name Status Comments Father Alive Maternal Grandfather Alive Maternal Grandmother Alive Mother Alive Paternal Grandfather Alive Paternal Grandmother Alive Sister 1 Alive Sister 2 Alive Social History Tobacco Use Types Packs/Day Years Used Date Smoking Tobacco: Never Smokeless Tobacco: Never Tobacco Cessation:Counseling Given: No Alcohol Use Standard Drinks/Week Comments Never 0 (1 standard drink = 0.6 oz pur e alcohol) AUDIT-C Answer Date Recorded Frequency of Alcohol Consumption Never 06/29/2018 Average Number of Drinks Not on file 019 Frequency of Binge Drinking Not on file 03/2018 Sexually Active Control Partners Comments Not Currently Comments No Sex and Gender Information Value Date Recorded Sex Assigned at Not on file Legal Sex Female 9:39 PM CDT Gender Identity Not on file Sexual Orientation Not on file Last Filed Vital Signs Vital Sign Reading Time Taken Comments Blood Pressure 106/70 12/28/2018 9:10 AM CDT Pulse 92 12/28/2018 9:10 AM CDT Temperature 36.1 C (97 F) 12/28/2018 9:10 AM CDT Respiratory Rate 16 12/28/2018 9:10 AM CDT Oxygen Saturation 98% 12/28/2018 9:10 AM CDT Inhaled Oxygen Concentration - - Weight 97.5 kg (215 lb) 12/28/2018 9:10 AM CDT Height 160 cm (5' 3) 12/28/2018 9:10 AM CDT Body Mass Index 38.09 12/28/2018 9:10 AM CDT Plan of Treatment Health Maintenance Due Date Last Done Comments Hepatitis C Virus (HCV) Screening 1998 Influenza Immunization (#1) 2024 01/11/2015 SARS-COV-2 Immunization ( season) 2024 Respiratory Syncytial Virus (RSV) Immunization (Adult) (1 - 1-dose 75+ series) 2073 Hepatitis B Immunization Completed 000, 06/18/1999, 02/16/1999 Pneumococcal Immunization Combined Aged Out 02/17/2000, 12/19/1999 No longer eligibl e based on patient's age to complete this topic DTaP/Tdap/Td Immunization Discontinued 2010, 12/20/2003, 03/19/2000, Additional history exists TdaP Immunization Completed 10/18/2010 Human Papillomavirus (HPV) Immunization Completed 09/23/2013, 04/08/2013, 02/05/2013 Meningococcal Immunization (ACWY) Completed 11/05/2016, 10/08/2010 Rotavirus Immunization Aged Out No lo nger eligible based on patient's age to complete this topic Insurance [facility] Care Teams Electromechanical Equipment Tester Relationship Specialty Start Date End Date Jorje Purdy MD [address] [place] [address] PCP - General Internal Medicine 06/29/18 Terra Alfonso MD [address] [place] [address] Allergy & Immunology 07/08/18
== END 2024-12-22 14:34 | disposition home or self-care (01) ==
LOC: ANHIMG 14:55
PROVIDERS: PCP Internal Medicine; Visit Provider Nurse Practitioner Obstetrics & Gynecology
DX: O20.0 Threatened abortion (principal); Z3A.00 Weeks of gestation of pregnancy not specified
CPT/HCPCS: 76801

== ENCOUNTER 2024-12-23 15:36 | Outpatient (CLI) | payer BC, SELFPAY ==
--- OUTSIDE RECORDS SUMMARY | 2024-12-23 17:37 | XMS_ITS | Patient Health Record ---
Author Organization [facility] [employer] Address [address] [place] [address] Care Team Providers Care Personnel Security Assistant Name Role Phone Bree Munson Unavailable [phone] Allergies Allergen (clinical drug ingredient) Drug/Non Drug [...] a day; Duration: 30 days *Reorder from [employer] for eRx and Interaction Alerts* Active Depakote [...] YEARS) 52 MG INTRAUTERINE DEVICE *Reorder from [employer] for eRx and Interaction Alerts* 08/12/2023 Active [...] Problem Bipolar affective disorder, currently depressed, mild (118868128) Bipolar disorder, current episode depressed, mild (F31.31) 08/12/19 Active confirmed Problem Generalized anxiety disorder (38152567) Generalized anxiety disorder (F41.1) 08/12/19 Active confirmed Problem Primary insomnia (6945306) Primary insomnia (F51.01) 08/12/19 Active confirmed Problem Bipolar 1 disorder (409031586) Bipolar 1 disorder (F31.9) Active confirmed Problem Long-term current use of drug therapy (474807530) On retirement drug therapy (Z79.899) Active confirmed Problem Bipolar affective disorder, currently manic, moderate (262392313) Bipolar disorder, manic, moderate (F31.12) Active confirmed Problem Hypnagogic hallucinations (50940108) Hypnagogic hallucinations (R44.2) Active confirmed Vital Signs Heart Rate 52 /min 12/26/2023 Height-cm 160.02 cm 12/26/2023 Blood pressure diastolic 69 mm Hg 12/26/2023 Weight-kg 111.86 kg 12/26/2023 Height 63.00 in 12/26/2023 Blood pressure systolic 103 mm Hg 12/26/2023 Weight 246.6 lbs 12/26/2023 BMI 43.68 kg/m2 12/26/2023 Encounters Encounter Location Date Provider Diagnosis [facility] [employer] [facility] [address] [address] 12/26/2023 Bree Munson Bipolar 1 disorder F31.9 ; Generalized anxiety disorder F41.1 ; Hypnagogic hallucinations R44.2 and Primary insomnia F51.01 [employer] [employer] [address] [place] [address] 04/08/2024 Bree Munson Bipolar 1 disorder F31.9 Assessments Encounter Date Diagnosis (ICD Code) Assessment Notes Treatment Notes Treatment Clinical Notes Section Notes 12/26/2023 Bipolar 1 disorder (ICD-10 - F31.9) [...] at this time for symptom control dameon/mix/depres lbian 2. Hypnagogic Hallucinations - She reports experiencing [...] treatment plan and make any necessary adjustments. 04/08/2024 Bipolar 1 disorder (ICD-10 - F31.9) 12/26/2023 Generalized anxiety disorder (ICD-10 - F41.1) [...] Insured Coverage Start Date Coverage End Date [facility] [address] [place] [address] [id number] MAYURI ESTRADA Self - patient is the insured Medical (General) History Medical History History ICD Code Problems: Bipolar I disorder, most recen t episode depression Generalized anxiety disorder Manic bipolar I disorder Mild recurrent major depression Primary insomnia , Surgical History Surgery Date(Month/Year) Tonsilectomy/adenoids 03/31/2016
--- OUTSIDE RECORDS SUMMARY | 2024-12-23 17:37 | XMS_ITS | Patient Health Record ---
Author Organization [facility] Address [address] [place] [address] Care Team Providers Care Hydrogenation Still Operator Name Role Phone Arcelia Tyler Primary Care Provider Allergies Allergen (clinical drug ingredient) Drug/Non Drug [...] Status Risk Notes Problem Generalized anxiety disorder (47304465) GOMEZ (generalized anxiety disorder) (F41.1) Active confirmed Problem Major depressive disorder (132871383) MDD (major depressive disorder) (F32.9) Active confirmed Plan Of Treatment No Information Insurance Providers Payer Name Payer Address Payer Phone Subscriber Number Group Number Insured Name Patient Relationship to Insured Coverage Start Date Coverage End Date MEDICAID [address] [place] [phone] [id number] Trina Buenrostro Self - patient is the insured 5
--- OUTSIDE RECORDS SUMMARY | 2024-12-23 17:37 | XMS_ITS | Clinical Summary ---
Author Organization [facility] Address [address] [place] [address] Care Team Providers Care Polisher Eyeglass Frames Name Role Phone Tiffanie Fontaine MD Primary Care Provider Unavailab le Source Comments [facility],non-owned Affiliates and Associated Physician Practices is amultiple site organization consisting of ambulatory clinics and hospital sitesin [place], [place], [place] and [place]. This disclosure is being madepursuant to the Care Everywhere program and may not contain all information available regarding this patient. Last updated 17.[facility] Allergies Active Allergy Reactions Criticality Noted Date [...] on file Legal Sex Female 5:32 AM BUTCHER SCULLION Gender Identity Not on file Sexual Orientation [...] this topic Insurance ANTHEM ANTHEM Care Teams Polisher Eyeglass Frames Relationship Specialty Start Date End Date Tiffanie Fontaine MD PCP - General Pediatrics 11/29/11
--- OUTSIDE RECORDS SUMMARY | 2024-12-23 17:37 | XMS_ITS | Clinical Summary ---
Author Organization [facility] Address [address] [place] [address] Phone Care Team Providers Care Distributor Operator Name Role Phone Jorje Purdy MD Unavailable [phone] Jorje Purdy MD Primary Care Provider [phone] Allergies Active Allergy Reactions Criticality Noted Date [...] Department Care Team Description 10/18/2024 Orders Only [facility] [address] [facility] [address] [place] [address] Arnaud Navarro MD Exposure to MRSA (Primary Dx) from Last 3 Months Surgical History Surgery Date Site/Laterality Comments ID TONSILLECTOMY PRIMARY/SEC ONDARY <AGE 10 Tonsillectomy - [...] on file Legal Sex Female 10:41 PM MANAGER REGIONAL Gender Identity Not on file Sexual Orientation [...] patient's age to complete this topic Insurance [facility] [employer] [facility] [employer]AL [facility] [employer] Care Teams Distributor Operator Relationship Specialty Start Date End Date Jorje Purdy MD [address] [place] [address] PCP - General Internal Medicine 05/12/24 Jorje Purdy MD [address] [place] [address] 04/14/24
--- OUTSIDE RECORDS SUMMARY | 2024-12-23 17:37 | XMS_ITS | Clinical Summary ---
Author Organization [facility] Address [facility] [place] [address] Care Team Providers Care Bartender Name Role Phone Jorje Purdy MD Primary Care Provider [phone] Allergies Active Allergy Reactions Criticality Noted Date [...] to complete this topic Insurance Care Teams Bartender Relationship Specialty Start Date End Date Jorje Purdy MD [address] [place] [address] PCP - General INTERNAL MEDICINE 07/09/21
--- OUTSIDE RECORDS SUMMARY | 2024-12-23 17:37 | XMS_ITS | Clinical Summary ---
Author Organization [facility] Address [address] [place] [address] Phone Care Team Providers Care Medical Cash Poster Name Role Phone Jorje Purdy MD Primary Care Provider [phone] Terra Alfonso MD Unavailable [phone]- [phone] Allergies Active Allergy Reactions Criticality Noted Date [...] patient's age to complete this topic Insurance [facility] Care Teams Medical Cash Poster Relationship Specialty Start Date End Date Jorje Purdy MD [address] [place] [address] PCP - General Internal Medicine 06/29/18 Terra Alfonso MD [address] [place] [address] Allergy & Immunology 07/08/18
--- OUTSIDE RECORDS SUMMARY | 2024-12-23 17:37 | XMS_ITS | Clinical Summary ---
Author Organization [facility] Address [address] [place] [address] Care Team Providers Care Powdered Sugar Pulverizer Operator Name Role Phone Jroje Purdy MD Primary Care Provider + Allergies [...] 12/18/2019 INFLUENZA VACCINE (#1) 2024 Insurance [facility] Care Teams Powdered Sugar Pulverizer Operator Relationship Specialty Start Date End Date Jorje Purdy MD [address] [place] [address] PCP - General Internal Medicine 01/14/18
== END 2024-12-23 15:37 | disposition home or self-care (01) ==
LOC: ANHLAB 15:37
PROVIDERS: PCP Internal Medicine; Visit Provider Nurse Practitioner Obstetrics & Gynecology
DX: O20.9 Hemorrhage in early pregnancy, unspecified (principal); Z3A.00 Weeks of gestation of pregnancy not specified
CPT/HCPCS: 36415; 86850; 86900; 86901

== ENCOUNTER 2025-01-12 10:55 | Outpatient (CLI) | payer BC, SELFPAY ==
--- OUTSIDE RECORDS SUMMARY | 2025-01-12 08:46 | XMS_ITS | Encounter Summary ---
Author Organization [facility] Address [address] [place] [address] Care Team Providers Care Chute Greaser Name Role Phone Tiffanie Fontaine MD Primary Care Provider Unavailab le Reason for Referral * (Routine) - Open Specialty Diagnoses / Procedures Referred By Contac t Referred To Contact Diagnoses with uncertain dates, antepartum (HCC) Encounter for ultrasound (HCC) History of bipolar disorder History of schizophrenia Procedures Sonogram - Complete Vero Gallagher APRN-CNP [address] [place] [address] Phone: tel: fax: Referral ID Status Reason Start Date Expiration Date Visits Re quested Visits Authorized [id number] Open 01/10/2025 01/10/2026 1 1 Reason for Visit * (Routine) - Open Specialty Diagnoses / Procedures Referred By Contac debo Referred To Contact Diagnoses with uncertain dates, antepartum (HCC) Encounter for ultrasound (HCC) History of bipolar disorder History of schizophrenia Procedures Sonogram - Complete Vero Gallagher APRN-CNP [address] [place] [address] Phone: tel: fax: Referral ID Status Reason Start Date Expiration Date Visits Re quested Visits Authorized [id number] Open 01/10/2025 01/10/2026 1 1 Encounter Details Date Type Department Care Team (Late st Contact Info) Description 01/12/2025 8:46 AM CDT Hospital Encounter [facility] Maternal & Care [address] [place] [address] Savana Lopez MD [address] [place] [address] Social History Tobacco Use Types Packs/Day Years Used Date Smoking Tobacco: Never Smokeless Tobacco: Never Alcohol Use Standard Drinks/Week Comments Not Currently 0 (1 standard drink = 0.6 oz pur e alcohol) Denver Depression Scale Answer Date Recorded Denver Depression Scale Total 11 01/12/2025 The thought of harming myself has occurred to me . Never 01/12/2025 Estimated Date of Delivery Comme nts Yes 08/13/2025 Based on Ultraso und Sex and Gender Information Value Date Recorded Sex Assigned at Not on file Legal Sex Female 5:32 AM INDUSTRIAL PSYCHOLOGY TEACHER Gender Identity Not on file Sexual Orientation Not on file documented as of this encounter Plan of Treatment Upcoming Encounters Date Type Department Care Team (Late st Contact Info) Description 02/01/2025 7:30 AM INDUSTRIAL PSYCHOLOGY TEACHER Appointment [facility]aternal & Care [address] [place] [address] 03/22/2025 9:00 AM INDUSTRIAL PSYCHOLOGY TEACHER Appointment [facility] [address] [place] [phone] documented as of this encounter Procedures Procedure Name Priority Date/Time Associated Diagnosis Comments SONOGRAM - COMPLETE Routine 01/12/2025 8:47 AM CDT with uncertain dates, antepartum (HCC) Encounter for ultrasound (HCC) History of bipolar disorder History of schizophrenia documented in this encounter Results * Sonogram - Complete (01/12/2025 8:47 AM CDT) Linked Results Indication ======== Confirm viability of fetus Obesity complicating , Class 3 - BMI of 40.0 or greater Bipolar disease complicating History ====== OB History 1 Maternal Assessment = Physical Exam Height 160 cm, 5 ft 3 in. Weight 120 kg, 264 lb. Initial weight 118 kg, 260 lb. BMI 46.77 kg/m . Initial BMI 46.06 kg/m . Weight gain 2 kg, 4 lb Method ====== Transabdominal ultrasound. View: Good view ========= [place] . Number of embryos: 1 Dating ====== Date Details Gest. age DANIEL LMP 11/02/2024 Cycle: irregular cycle 10 w + 1 d 08/09/2025 Previous U/S 12/22/2024 CRL 7.3 mm 9 w + 4 d 08/13/2025 U/S 01/12/2025 based upon CRL 9 w + 3 d 08/14/2025 Assigned dating based on ultrasound (CRL), selected on 01/12/2025 9 w + 4 d 08/13/2025 General Evaluation Cardiac activity present Amniotic fluid: normal Biometry FHR 180 bpm CRL 25.8 mm 9w 3d 22% [place] Maternal Structures Right Ovary Not visualized Appearance: Adnexa appears normal Left Ovary Not visualized Appearance: Adnexa appears normal Cul de Sac Visualized. No free fluid visualized Impression ========= Single, live, intrauterine at 9w 4d Today's US is consistent with dating by the previous scan. Follow-up ======== First trimester scan/ NT is recommended from 12-13 6/7 weeks GA. Detailed anatomic survey at 20 weeks. See separate M visit note. Coding ====== Diagnoses O36.80X0: with inconclusive viability O99.211, E66.813: Obesity complicating , Class 3 - BMI of 40.0 or greater O99.341, F31.9: Other mental disorders complicating , Bipolar disease Procedures 09887: 1st Trimester 38770: US Preg Uterus Transvaginal [facility] SingOn PACS Anatomical Region Laterality Modality Other 01/12/2025 8:47 AM CDT Vero Ester Gallagher MOVING PICTURE OPERATOR-RESERVES CLERK M ORDERABLES Edited Result - Final documented in this encounter Visit Diagnoses Diagnosis Bipolar disease during in first trimester (HCC)- Primary with uncertain dates, antepartum ([facility]) state, incidental Encounter for ultrasound ([facility]) Encounter for routine screening for malformation using ultrasonics History of bipolar disorder Personal history of affective disorder History of schizophrenia Personal history of schizophrenia Medication exposure during first trimester of ([facility]) Supervision of other high-risk documented in this encounter Care Teams Chute Greaser Relationship Specialty Start Date End Date Tiffanie Fontaine MD PCP - General Pediatrics 11/29/11 documented as of this encounter
--- OUTSIDE RECORDS SUMMARY | 2025-01-12 08:46 | XMS_ITS | Encounter Summary ---
Author Organization [facility] Address [address] [place] [address] Care Team Providers Care Clam Dredge Boat Captain Name Role Phone Tiffanie Fontaine MD Primary Care Provider Unavailab le Reason for Referral * (Routine) - Open Specialty Diagnoses / Procedures Referred By Contlisa edmondson Referred To Contact Diagnoses with uncertain dates, antepartum (HCC) Encounter for ultrasound (HCC) History of bipolar disorder History of schizophrenia Procedures Sonogram - Complete Vero Gallagher, JILL-REACTOR FUELING SUPERVISOR [address] [address] Phone: tel: fax: Referral ID Status Reason Start Date Expiration Date Visits Re quested Visits Authorized [id number] Open 01/10/2025 01/10/2026 1 1 Electronically signed by Vero Gallagher, STENCILING MACHINE TENDER-REACTOR FUELING SUPERVISOR at 01/10/2025 10:56 AM CDT Reason for Visit * Reason Comments Ultrasound Consultation Maternal Medicine Encounter Details Date Type Department Care Team (Late st Contact Info) Description 01/12/2025 8:46 AM CDT Hospital Encounter [facility] [address] [place] [address] Savana Lopez MD [address] [facility] 4TH [place] [id number] Social History Tobacco Use Types Packs/Day Years Used Date Smoking Tobacco: Never Smokeless Tobacco: Never Tobacco Cessation:Counseling Given: Not Answered Alcohol Use Standard Drinks/Week Comments Not Currently 0 (1 standard drink = 0.6 oz pur e alcohol) Overbrook Depression Scale Answer Date Recorded [place] Depression Scale Total 11 01/12/2025 The thought of harming myself has occurred to me . Never 01/12/2025 Estimated Date of Delivery Comme nts Yes 08/13/2025 Based on Ultraso und Sex and Gender Information Value Date Recorded Sex Assigned at Not on file Legal Sex Female 5:32 AM WHEEL PRESS OPERATOR Gender Identity Not on file Sexual Orientation Not on file documented as of this encounter Last Filed Vital Signs Vital Sign Reading Time Taken Comments Blood Pressure 113/76 01/12/2025 9:07 AM CDT Pulse 76 01/12/2025 9:07 AM CDT Temperature - - Respiratory Rate - - Oxygen Saturation - - Inhaled Oxygen Concentration - - Weight 120 kg (264 lb 9.6 oz) 01/12/2025 9:07 AM CDT Height 160 cm (5' 3) 01/12/2025 9:07 AM CDT Body Mass Index 46.87 01/12/2025 9:07 AM CDT documented in this encounter Progress Notes * Kira Pelaez RN - 01/12/2025 9:25 AM CDT Patient here with sig. other for provider visit and ultrasound for bipolar 1 and was on Latuda but stopped approximately one month ago. Patient notes having a little more depression since stopped Latuda but feels her mood is stable. Patient reports she has been on prozac for a couple months and lamictal for about one year. Patient sees Psychiatry- Dr. Chio Estrada at [facility] in [place], [place]. See therapist separately. Patient reports spotting at 8 weeks and subchorionic hematoma was noted, then resolved 2 weeks ago per patient. Denies contractions, vaginal bleeding, leakage of fluid, and absent good movement. RN reviewed preeclampsia precautions. Denies headache, blurred vision, RUQ pain. Patient Vitals for the past 6 hrs: Pulse BP 01/12/25 0907 76 113/[address] Lopez for patient to have CBC, CMP, urine PCR, HgA1c, TSH, & FT4. Patient would like to have NIPT done but it is too expensice with outside lab. Patient would like to schedule to have nuchal translucency ultrasound with MFM and NIPT drawn at that visit. Will need new orders for follow with MFM. Will request from Dr. Collins's office. Patient will be allowed to schedule today pending orders. Patient verbalized understanding. Kira Pelaez, SACHI 01/12/2025 9:28 AM documented in this encounter Plan of Treatment Upcoming Encounters Date Type Department Care Team (Late st Contact Info) Description 02/01/2025 7:30 AM WHEEL PRESS OPERATOR Appointment [facility] [address] [place] [address] 03/22/2025 9:00 AM WHEEL PRESS OPERATOR Appointment [facility] [address] [place] [address] Scheduled Orders Name Type Priority Associated Diagnoses Orde r Schedule CBC WITH DIFFERENTIAL Lab Routine Obesity affecting , antepartum, unspecified obesity type (HCC) 1 Occurrences starting 01/12/2025 until 01/07/2026 COMPREHENSIVE METABOLIC PANEL Lab Routine Obesity affecting , antepartum, unspecified obesity type (HCC) 1 Occurrences starting 01/12/2025 until 01/07/2026 PROTEIN CREATININE RATIO URINE RANDOM PNL Lab Routine Obesity affecting , antepartum, unspecified obesity type (HCC) 1 Occurrences starting 01/12/2025 until 01/07/2026 TSH Lab Routine Obesity affecting , antepartum, unspecified obesity type (HCC) 1 Occurrences starting 01/12/2025 until 01/07/2026 T4 FREE Lab Routine Obesity affecting , antepartum, unspecified obesity type (HCC) 1 Occurrences starting 01/12/2025 until 01/07/2026 HEMOGLOBIN A1C Lab Routine Obesity affecting , antepartum, unspecified obesity type (HCC) 1 Occurrences starting 01/12/2025 until 01/07/2026 documented as of this encounter Results * Sonogram - Complete [...] mental disorders complicating , Bipolar disease Procedures 58121: 1st Trimester 74208: US Preg Uterus Transvaginal [place] PACS Anatomical Region Laterality Modality Other 01/12/2025 8:47 AM CDT Vero Gallagher APRN-REACTOR FUELING SUPERVISOR [facility] ORDERABLES Edited Result - Final documented in this encounter Visit Diagnoses Diagnosis with uncertain dates, antepartum (HCC)- Primary state, incidental Encounter for ultrasound (HCC) Encounter for routine screening for malformation using ultrasonics History of bipolar disorder Personal history of affective disorder History of schizophrenia Personal history of schizophrenia Medication exposure during first trimester of (HCC) Supervision of other high-risk Bipolar disease during in first trimester (HCC) Obesity affecting , antepartum, unspecified obesity type (HCC) documented in this encounter Care Teams Clam Dredge Boat Captain Relationship Specialty Start Date End Date Tiffanie Fontaine MD PCP - General Pediatrics 11/29/11 documented as of this encounter
[2025-01-12 11:29] LABS: Hematocrit 43.2 % (37.0-47.0); Hemoglobin 14.3 g/dL (12.0-15.0); Mean Corpuscular HGB Conc 33.1 g/dl (32-36); Mean Corpuscular Hemoglobin 29.2 pg (26-34); Mean Corpuscular Volume 88.3 fl (80-100); Platelet Count Result 216 k/mm3 (150-375); Red Blood Count 4.89 M/mm3 (4.2-5.4); White Blood Count 11.1 K/mm3 (4.5-10.0)
[2025-01-12 11:50] LABS: Add Urine Microscopic? YES; Appearance Urine Cloudy (Clear); Glucose Urine UA Negative (Negative); Leukocyte Esterase Ur 2+ LEU/UL (Negative); Nitrate Urine Negative (Negative); Non Pathogenic Casts 0-2; Specific Grav Ur 1.023 (1.001-1.035)
[2025-01-12 12:22] LABS: Syphilis IgG/IgM Antibody Non-Reactive (Nonreactive)
[2025-01-12 12:26] LABS: Thyroid Stimulating Hormone 1.590 uIU/mL (0.465-4.680)
[2025-01-12 12:27] LABS: Hepatitis B Surface Antigen Negative (Negative)
[2025-01-12 12:34] LABS: HIV 1/2 Ab P24 Ag Result Negative (Negative)
--- OUTSIDE RECORDS SUMMARY | 2025-01-12 12:56 | XMS_ITS | Patient Health Record ---
Author Organization [facility] Address [address] [place] [address] Care Team Providers Care Clinical Operations Leader Name Role Phone Arcelia Tyler Primary Care Provider [phone] Allergies Allergen (clinical drug ingredient) Drug/Non Drug [...] Status Risk Notes Problem Generalized anxiety disorder (35528482) GOMEZ (generalized anxiety disorder) (F41.1) Active confirmed Problem Major depressive disorder (035021466) MDD (major depressive disorder) (F32.9) Active confirmed Plan Of Treatment No Information Insurance Providers Payer Name Payer Address Payer Phone Subscriber Number Group Number Insured Name Patient Relationship to Insured Coverage Start Date Coverage End Date MEDICAID [address] [place] [phone] [id number] Trina Buenrostro Self - patient is the insured 5
--- OUTSIDE RECORDS SUMMARY | 2025-01-12 12:56 | XMS_ITS | Clinical Summary ---
Author Organization [facility] Address [address] [place] [address] Care Team Providers Care Raw Stock Machine Feeder Name Role Phone Jorje Purdy MD Primary [...] 12/18/2019 INFLUENZA VACCINE (#1) 2024 Insurance FEDERAL [facility] FEDERAL Care Teams Raw Stock Machine Feeder Relationship Specialty Start Date End Date Jorje Purdy MD [address] [place] [phone] PCP - General Internal Medicine 01/14/18
--- OUTSIDE RECORDS SUMMARY | 2025-01-12 12:58 | XMS_ITS | Clinical Summary ---
Author Organization [facility] Address [address] [place] [phone] Phone Care Team Providers Care Chip Silo Tender Name Role Phone Jorje Purdy MD Unavailable [phone] Jorje Purdy MD Primary Care Provider [phone] Allergies Active Allergy Reactions Criticality Noted Date [...] Department Care Team Description 10/18/2024 Orders Only [facility] [address] [facility] [address] [place] [address] Arnaud Navarro MD Exposure to MRSA (Primary Dx) from Last 3 Months Surgical History Surgery Date Site/Laterality Comments IN TONSILLECTOMY PRIMARY/SEC ONDARY <AGE 10 Tonsillectomy - [...] on file Legal Sex Female 10:41 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
--- OUTSIDE RECORDS SUMMARY | 2025-01-12 12:58 | XMS_ITS | Clinical Summary ---
Author Organization [facility] Address [facility] [place] [address] Care Team Providers Care Apparatus Lineman Name Role Phone Jorje Purdy MD Primary Care Provider [phone] Allergies Active Allergy Reactions Criticality Noted Date [...] Vaccine ( - 2023-2 5 season) 2024 Influenza Adult (#1) 2024 RSV Immunization or 60+ Years (1 - 1-dose 75+ series) 2073 Hepatitis A Vaccines Aged Out No long er eligible based on patient's age to complete this topic Meningococcal B Vaccine Aged Out No l [...] patient's age to complete this topic Insurance [facility] [[email or web address]] Care Teams Apparatus Lineman Relationship Specialty Start Date End Date Jorje Purdy MD [address] [place] [phone] PCP - General INTERNAL MEDICINE 07/09/21
--- OUTSIDE RECORDS SUMMARY | 2025-01-12 12:58 | XMS_ITS | Clinical Summary ---
Author Organization [facility] Address [address] [place] [address] Phone Care Team Providers Care Developing Machine Tender Name Role Phone Jorje Purdy MD Primary Care Provider [phone] Terra Alfonso MD Unavailable [phone] Allergies Active Allergy Reactions Criticality Noted Date [...] patient's age to complete this topic Insurance [facility] Care Teams Developing Machine Tender Relationship Specialty Start Date End Date Jorje Purdy MD [address] [place] [address] PCP - General Internal Medicine 06/29/18 Terra Alfonso MD [address] [place] [address] Allergy & Immunology 07/08/18
--- OUTSIDE RECORDS SUMMARY | 2025-01-12 12:58 | XMS_ITS | Clinical Summary ---
Author Organization [facility] Address [address] [place] [address] Care Team Providers Care Physiotherapy Assistant Name Role Phone Tiffanie Fontaine MD Primary Care Provider Unavailab le Source Comments [facility],non-owned Affiliates and Associated Physician Practices is amultiple site organization consisting of ambulatory clinics and hospital sitesin [place], [place], [place] and [place]. This disclosure is being madepursuant to the Care Everywhere program and may not contain all information available regarding this patient. Last updated 17.[facility] Allergies Active Allergy Reactions Criticality Noted Date [...] tablet by mouth 2 times daily Active FLUoxetine (PROzac) 10 MG capsule Take 1 (one) capsule by mouth once daily Active lamoTRIgine (LaMICtal) 200 MG tablet Take 1 (one) tablet by mouth 2 times daily Active cetirizine (ZyrTEC) 10 MG tablet Take 1 (one) tablet by mouth at bedtime Active Vit-DSS-Fe Fum-FA ( vitamin with iron) tabletIndicatio ns: Take 1 (one) tablet by mouth once daily Reasons: Active Active Problems Problem Noted Date Diagnosed Date Bipolar disease during 01/12/2025 Medication exposure during first trimester of pr egnancy 01/12/2025 PCOS (polycystic ovarian syndrome) 01/12/2025 Estimated Date of Delivery Comme nts Yes 08/13/2025 Based on Ultraso und Encounters Date Type Department Care Team Description 01/12/2025 8:46 AM CDT Hospital Encounter [facility] [address] [place] [address] Savana Lopez MD 01/12/2025 8:46 AM T Hospital Encounter [facility] [address] [place] [address] Savana Lopez MD from Last 3 Months Family History Medical History Relation Name Comments Hypertension Father afshan Sister 1 Relation Name Status Comments Father Alive Mother Alive Sister 1 Alive Sister 2 Alive Social History Tobacco Use Types Packs/Day Years Used Date Smoking Tobacco: Never Smokeless Tobacco: Never Tobacco Cessation:Counseling Given: Not Answered Alcohol Use Standard Drinks/Week Comments Not Currently 0 (1 standard drink = 0.6 oz pur e alcohol) [place] Depression Scale Answer Date Recorded [place] Depression Scale Total 11 01/12/2025 The thought of harming myself has occurred to me . Never 01/12/2025 Estimated Date of Delivery Comme nts Yes 08/13/2025 Based on Ultraso und Sex and Gender Information Value Date Recorded Sex Assigned at Not on file Legal Sex Female 5:32 AM SALES AND MARKETING EXECUTIVE Gender Identity Not on file Sexual Orientation [...] Mass Index 46.87 01/12/2025 9:07 AM CDT Plan of Treatment Upcoming Encounters Date Type Department Care Team (Late st Contact Info) Description 02/01/2025 7:30 AM SALES AND MARKETING EXECUTIVE Appointment [facility] [address] [place] [address] 03/22/2025 9:00 AM SALES AND MARKETING EXECUTIVE Appointment [facility] [address] [place] [address] Health Maintenance Due Date Last Done Comments HIV SCREENING 2013 HPV VACCINE (1 - 3-dose series) 2013 CHLAMYDIA/GONORRHEA SCREENING 2014 HEPATITIS C SCREENING 12/12/2016 DTAP/TDAP/TD VACCINES (1 - Tdap) 2017 HEPATITIS B VACCINE (1 of 3 - 19+ 3-dose series) 2017 PAP SMEAR 12/18/2019 COVID-19 VACCINE (1 - 2023- season) 2024 INFLUENZA VACCINE (#1) 2024 5, 02/05/2013, 01/16/2012, Additional history exists ZOSTER VACCINE (1 of 2) 2048 Respiratory Syncytial Virus (RSV) Vaccine Pt: or over 60 yrs (1 - 1-dose 75+ series) 2073 HIB VACCINE Aged Out No longer eligi ble based on patient's age to complete this topic MENINGOCOCCAL (Group B) VACCINE SHARED DECISION-MAKING Aged Out No longer eligible based on patient's age to complete this topic MENINGOCOCCAL GROUPS A/C/Y/W VACCINE Aged Out No longer eligible based on patient's age to complete this topic PNEUMOCOCCAL VACCINE Aged Out No long er eligible based on patient's age to complete this topic Procedures Procedure Name Priority Date/Time Associated Diagnosis Comments SONOGRAM - COMPLETE Routine 01/12/2025 8:47 AM CDT with uncertain dates, antepartum (HCC) Encounter for ultrasound ([facility]) History of bipolar disorder History of schizophrenia from Last 3 Months Results * Sonogram - Complete (01/12/2025 8:47 [...] First trimester scan/ NT is recommended from -7 weeks GA. Detailed anatomic survey at 20 weeks. See separate MFM visit note. Coding ====== Diagnoses O36.80X0: with inconclusive viability O99.211, E66.813: Obesity complicating , Class 3 - BMI of 40.0 or greater O99.341, F31.9: Other mental disorders complicating , Bipolar disease Procedures 45832: 1st Trimester [address]9213: US Preg Uterus Transvaginal [facility] PACS Anatomical Region Laterality Modality Other 01/12/2025 8:47 AM CDT us Vero Gallagher TUBE MAKER-SALES AND MARKETING EXECUTIVE [facility] ORDERABLES Edited Result - Final from Last 3 Months Insurance [facility] Address: [place] [address] [employer] Care Teams Physiotherapy Assistant Relationship Specialty Start Date End Date Tiffanie Fontaine MD PCP - General Pediatrics 11/29/11
--- OUTSIDE RECORDS SUMMARY | 2025-01-12 12:58 | XMS_ITS | Patient Health Record ---
Author Organization [facility] [employer] Address [address] [facility] [address] [place] [address] Care Team Providers Care Library Sales Consultant Name Role Phone Bree Munson Unavailable [phone] Allergies Allergen (clinical drug ingredient) Drug/Non Drug [...] a day; Duration: 30 days *Reorder from [employer] for eRx and Interaction Alerts* Active Depakote [...] YEARS) 52 MG INTRAUTERINE DEVICE *Reorder from [employer] for eRx and Interaction Alerts* 08/12/2023 Active [...] Problem Bipolar affective disorder, currently depressed, mild (517109860) Bipolar disorder, current episode depressed, mild (F31.31) 08/12/19 Active confirmed Problem Generalized anxiety disorder (01050290) Generalized anxiety disorder (F41.1) 08/12/19 Active confirmed Problem Primary insomnia (0091508) Primary insomnia (F51.01) 08/12/19 Active confirmed Problem Bipolar 1 disorder (806011166) Bipolar 1 disorder (F31.9) Active confirmed Problem Long-term current use of drug therapy (242342035) On penitentiary drug therapy (Z79.899) Active confirmed Problem Bipolar affective disorder, currently manic, moderate (385536819) Bipolar disorder, manic, moderate (F31.12) Active confirmed Problem Hypnagogic hallucinations (55144968) Hypnagogic hallucinations (R44.2) Active confirmed Encounters Encounter Location Date Provider Diagnosis [facility] [address] [place] [address] [address] 04/08/2024 Bree Munson Bipolar 1 disorder F31.9 Assessments Encounter Date Diagnosis (ICD Code) Assessment Notes Treatment Notes Treatment Clinical Notes Section Notes 04/08/2024 Bipolar 1 disorder (ICD-10 - F31.9) Plan Of Treatment Pending Test Test Name Order Date UDT 12/04/2023 Insurance Providers Payer Name Payer Address Payer Phone Subscriber Number Group Number Insured Name Patient Relationship to Insured Coverage Start Date Coverage End Date [facility] [address] [place] [phone] [id number] MAYURI ESTRADA Self - patient is the insured Medical (General) History Medical History History ICD Code Problems: Bipolar I disorder, most recen t episode depression Generalized anxiety disorder Manic bipolar I disorder Mild recurrent major depression Primary insomnia , Surgical History Surgery Date(Month/Year) Tonsilectomy/adenoids 03/31/2016
[2025-01-13 10:08] LABS: Varicella-Zoster Ab, IgG Non Reactive (Non Reactive)
== END 2025-01-12 10:56 | disposition home or self-care (01) ==
LOC: ANHLAB 10:56
PROVIDERS: PCP Internal Medicine; Visit Provider Obstetrics & Gynecology
DX: Z34.90 Encounter for supervision of normal pregnancy, unspecified, unspecified trimester (principal)
CPT/HCPCS: 36415; 81001; 83020; 84443; 85027; 85660; 86593; 86703; 86762; 86787; 86803; 86850; 86900; 86901; 87340; G0432

== ENCOUNTER 2025-03-04 13:49 | Outpatient (CLI) | payer SELFPAY ==
[2025-03-04 16:16] LABS: Glucose 1 Hour PP 50gm Dose 136 mg/dL
== END 2025-03-04 13:50 | disposition home or self-care (01) ==
PROVIDERS: PCP Internal Medicine; Visit Provider Nurse Practitioner Obstetrics & Gynecology
DX: O99.211 Obesity complicating pregnancy, first trimester (principal); Z3A.00 Weeks of gestation of pregnancy not specified
CPT/HCPCS: 36415; 82947

== ENCOUNTER 2025-03-10 07:32 | Outpatient (CLI) | payer SELFPAY | END 2025-03-10 07:33 | disposition home or self-care (01) | PROVIDERS: PCP Internal Medicine; Visit Provider Nurse Practitioner Obstetrics & Gynecology | DX: R73.09 Other abnormal glucose (principal) | CPT/HCPCS: 36415; 82951; 82952 ==

== ENCOUNTER 2025-03-28 13:51 | Outpatient (CLI) | payer SELFPAY | END 2025-03-28 13:52 | disposition home or self-care (01) | PROVIDERS: PCP Internal Medicine; Visit Provider Obstetrics & Gynecology | DX: Z34.92 Encounter for supervision of normal pregnancy, unspecified, second trimester (principal) | CPT/HCPCS: 76805 ==